=== PATIENT | male | born 1965 | race Caucasian/White ===

== ENCOUNTER 2022-06-29 17:04 | Inpatient (IN) | payer MEDICAID, OTHER ==
[~2022-06-29] VITALS: Ht 177.8 cm; Wt 108.9 kg
[2022-06-29 17:05] VITALS: BP_SYST 152
--- NOTE | 2022-06-29 17:05 | NUR ---
BROUGHT IN BY BLS AMBULANCE AND TRIAGED. PLACED IN HALLWAY BED, AWAITING ER BED AVAILABILITY
[2022-06-29] MEDS ORDERED: ACET325T PO (17:33)
[2022-06-29] MEDS ORDERED: PROP10TA10 PO (17:33)
[2022-06-29] MEDS ORDERED: FURO-149 PO (17:33)
[2022-06-29] MEDS ORDERED: ONDA-8 PO (17:33)
[2022-06-29] MEDS ORDERED: BISA-140 PO (17:33)
[2022-06-29] MEDS ORDERED: PRO40 PO (17:33)
[2022-06-29] MEDS ORDERED: SPIR50TA5 PO (17:33)
[2022-06-29] MEDS ORDERED: IPRA3AMP9 INH (17:33)
[2022-06-29] MEDS ORDERED: CALC-823 PO (17:33)
[2022-06-29] MEDS ORDERED: LACT10SO6 PO (17:33)
--- NOTE | 2022-06-29 17:33 | NUR ---
Medication reconciliation completed with information provided by MIMA ROMERO. Any prior medication reconciliation on file was reviewed and corrected.
[2022-06-29 17:57] LABS: EOSINOPHILS # (AUTO) 0.1 K/uL (0.0-0.4); EOSINOPHILS % (AUTO) 4.6 % (0.0-4.0); HEMATOCRIT 24.7 % (36-54); HEMOGLOBIN 8.1 g/dL (14.0-18.0); LYMPHOCYTES # (AUTO) 0.5 K/uL (1.0-5.5); LYMPHOCYTES % (AUTO) 20.7 % (20.5-51.5); MEAN CORPUSCULAR HEMOGLOBIN 26 pg (27-31); MEAN CORPUSCULAR HGB CONC 33 % (32-36); MEAN CORPUSCULAR VOLUME 78 fL (79.0-98.0); MONOCYTES # (AUTO) 0.5 K/uL (0.0-1.0); MONOCYTES % (AUTO) 17.7 % (1.7-9.3); NEUTROPHILS # (AUTO) 1.4 K/uL (1.8-7.7); PLATELET COUNT (AUTO) 53 K/uL (130-430); RED BLOOD CELL COUNT(AUTO) 3.18 MIL/uL (4.2-6.2); RED CELL DISTRIBUTION WIDTH 23.3 % (9.0-15.0); WHITE BLOOD COUNT (AUTO) 2.5 K/uL (4.8-10.8)
[2022-06-29 18:11] LABS: ANION GAP 3 (5-15); CALCIUM 8.3 mg/dL (8.4-11.0); CHLORIDE 108 mmol/L (98-107); CREATININE 0.78 mg/dL (0.55-1.30); GLUCOSE 123 mg/dL (70-99); UREA NITROGEN, BLOOD 17 mg/dL (8-21)
[2022-06-29 18:12] LABS: INR 1.5 (0.80-1.20); PROTHROMBIN TIME 15.6 SECS (9.5-12.5)
[2022-06-29 18:19] LABS: ALANINE AMINOTRANSFERASE 26 U/L (12-78); ALBUMIN 2.3 g/dL (3.4-4.8); ASPARTATE AMINOTRANSFERASE 48 U/L (10-37); TOTAL BILIRUBIN 1.8 mg/dL (0.0-1.0)
[2022-06-29 18:30] LABS: GFR AFRICAN AMERICAN 132 mL/min (>90)
[2022-06-29] MEDS ORDERED: cefTRIAXone 1 GM in D5W 50 ML IV ONE (19:15)
[2022-06-29] MEDS ORDERED: MORPHINE 4 MG INJ. 4 MG/ML VIAL IVP ONE (20:30)
[2022-06-29] MEDS ORDERED: ONDANSETRON HCL 4 MG/2 ML VIAL IVP ONE (20:30)
--- NOTE | 2022-06-29 20:30 | NUR ---
PT BIBA FROM [facility] WITH C/O ABD PAIN AND DISTENTION X 3 WEEKS ACCOMPANIED WITH N/V. PT DENIES CP, AND DIARRHEA. PT A&O X3 AND FOLLOWING COMMANDS. PT ARRIVED ON 2L NC AND STATES HE USES O2 SUPPLEMENT AT HOME.
--- NOTE | 2022-06-29 20:34 | NUR ---
COVID SWAB OBTAINED AND SENT TO LAB.
[2022-06-29] MEDS ORDERED: cefTRIAXone 1 GM VIAL ONE (20:56)
--- NOTE | 2022-06-29 22:08 | NUR ---
Admit bed requested Patient will be admitted to care of Dr Hurtado.. Admitted to medsurg unit. Diagnosis abd pain/ascites Inpatient (Yes or No) yes Observation (Yes or No) No Orientation concerns or request close to nursing station (Yes or No) no Covid Status negative On vent or bipap n/a Isolation requirements n/a Needs a sitter n/a From Home (Yes or if No enter name of facility) [facility] Requires Dialysis (Yes or No)No Med Rec Completed (Yes of No) yes
--- NOTE | 2022-06-29 22:30 | NUR ---
PT RESTING IN BED WITH EYES CLOSED, LAYING IN SIDE. PT VSS. SAFETY PRECAUTIONS IN PLACE AND CONNECTED TO MONITOR.
--- NOTE | 2022-06-29 23:09 | NUR ---
MRSA SWAB COLLECTED AND SENT TO LAB.
--- NOTE | 2022-06-29 23:33 | NUR ---
Patient will be admitted to care of DR. GONZALEZ. Admitted to MED SURG unit. Will go to room 130. Belongings list completed. Complete and up to date summary report printed. SBAR report given SMITA Foster at bedside with opportunity for questions.
[2022-06-30 00:26] VITALS: BP_SYST 132
--- NOTE | 2022-06-30 01:12 | NUR ---
PT ADMITTED FROM ER, AOX4, EVEN AND UNLABORED BREATHING, DENIED SOB, CP, ABD DISTENDED, HOB ELEVATED, PT ON 2L OF OXYGEN VIA N/C, C/O ABD PAIN 10/29. COMPLETE BODY CHECK DONE AND SKIN INTACT, PT ORIENTED TO ROOM, USE OF CALL LIGHT, INSTRUCTED NOT TO GET OOB W/O CALLING FOR ASSISTANCE. PT VERBALIZED UNDERSTANDING. PAGED DR CARLOS MAY FOR PAIN MED FOR PT, AWAITING FOR MD RESPONSE
[2022-06-30] MEDS ORDERED: NALOXONE HCL 0.4 MG/ML AMP (NARCAN) IVP PRN (02:15)
[2022-06-30] MEDS: HYDROcodone/ACETAMIN 10-325 MG TAB PO PRN ×2 (02:18→15:42)
--- NOTE | 2022-06-30 06:46 | NUR ---
PT ASLEEP IN BED, EVEN AND UNLABORED BREATHING, HOB ELEVATED TO AID BREATHING, ON 2L OXYGEN VIA N/C, SALINE LOCK TO RH, PATENT AND FLUSHING WELL, VOIDING VIA URINAL, ABD PAIN CONTROLLED WITH NORCO AND WAS EFFECTIVE PER PT, ON BEDEST, SAFETY PREC MAINTAINED, CALL LIGHT WITHIN EASY REACH, WILL BE ENDORSED TO INCOMNG RN
[2022-06-30 11:10] VITALS: BP_SYST 143
[2022-06-30] MEDS ORDERED: IPRATROPIUM/ALBUTEROL SULFATE 3 ML AMPUL.NEB (DUONEB) INH PRN (13:30)
[2022-06-30] MEDS ORDERED: BISACODYL 5 MG TABLET.DR (DULCOLAX) PO PRN (13:30)
[2022-06-30] MEDS ORDERED: ACETAMINOPHEN 325 MG TABLET PO PRN (13:30)
[2022-06-30] MEDS ORDERED: CALCIUM CARBONATE 500 MG/ TAB.CHEW PO PRN (13:45)
--- NOTE | 2022-06-30 14:00 | NUR ---
paracentesis done at bedside, patient tolerated well, bp 117/62, 4.2l out
--- NOTE | 2022-06-30 15:44 | NUR ---
patient c/o 10/29 abdominal pain, prn norco administered per emar
[2022-06-30] MEDS: PROPRANOLOL HCL 10 MG TABLET (INDERAL) PO SCH ×2 (17:00→21:00)
[2022-06-30 17:06] VITALS: BP_SYST 102
--- NOTE | 2022-06-30 20:00 | NUR ---
no distress noted, comfort maintained, able to make needs known, systolic b/p 100, held inderal, c/o headache, medicated with tylenol, karla iv abx, patient voids via urinal safely on side of bed
[2022-06-30 20:15] VITALS: BP_SYST 100
[2022-06-30] MEDS ORDERED: cefTRIAXone 1 GM in D5W 50 ML IV SCH (21:00)
[2022-07-01 00:20] VITALS: BP_SYST 98
[2022-07-01 00:25] VITALS: BP_SYST 118
--- NOTE | 2022-07-01 02:00 | NUR ---
PATIENT SLEEPING, NO DISTRESS NOTED, COMFORT MAINTAINED
[2022-07-01 06:40] LABS: INR 1.5 (0.80-1.20); PROTHROMBIN TIME 15.5 SECS (9.5-12.5)
[2022-07-01 06:55] LABS: CALCIUM 8.3 mg/dL (8.4-11.0); CREATININE 0.79 mg/dL (0.55-1.30)
[2022-07-01 07:51] LABS: EOSINOPHILS % (AUTO) 2.9 % (0.0-4.0); HEMATOCRIT 23.2 % (36-54); HEMOGLOBIN 7.6 g/dL (14.0-18.0); LYMPHOCYTES # (AUTO) 0.3 K/uL (1.0-5.5); LYMPHOCYTES % (AUTO) 22.5 % (20.5-51.5); MEAN CORPUSCULAR HEMOGLOBIN 26 pg (27-31); MEAN CORPUSCULAR HGB CONC 33 % (32-36); MEAN CORPUSCULAR VOLUME 78 fL (79.0-98.0); MONOCYTES # (AUTO) 0.2 K/uL (0.0-1.0); MONOCYTES % (AUTO) 15.1 % (1.7-9.3); NEUTROPHILS % (AUTO) 58.5 % (40.0-70.0); RED BLOOD CELL COUNT(AUTO) 2.98 MIL/uL (4.2-6.2)
[2022-07-01 08:00] VITALS: BP_SYST 101
[2022-07-01 08:58] LABS: WHITE BLOOD COUNT (AUTO) 1.3 K/uL (4.8-10.8)
[2022-07-01 08:59] LABS: NEUTROPHILS # (AUTO) 0.8 K/uL (1.8-7.7)
[2022-07-01] MEDS: PROPRANOLOL HCL 10 MG TABLET (INDERAL) PO SCH ×4 (09:00→21:18)
[2022-07-01] MEDS: FUROSEMIDE 40 MG TABLET PO SCH (09:31)
[2022-07-01] MEDS: SPIRONOLACTONE 50 MG TABLET (ALDACTONE) PO SCH (09:31)
[2022-07-01] MEDS: PANTOPRAZOLE SODIUM 40 MG TAB PO SCH (09:31)
--- NOTE | 2022-07-01 10:19 | NUR ---
CRITICAL LAB: from Laboratory called with critical lab value . Medical record number and patient name verified. Read back of values done. Dr. Mcghee made notified of value. No orders given at this time.
[2022-07-01 12:00] VITALS: BP_SYST 117
[2022-07-01 14:36] LABS: PLATELET COUNT (AUTO) 41 K/uL (130-430)
[2022-07-01 16:00] VITALS: BP_SYST 98
--- NOTE | 2022-07-01 19:32 | NUR ---
RECEIVED REPORT ON PATIENT FROM SMITA VENCES, ASSUMED CARE, AND STARTED ASSESSMENT.
[2022-07-01 20:00] VITALS: BP_SYST 109
[2022-07-01] MEDS: HYDROcodone/ACETAMIN 10-325 MG TAB PO PRN (20:19)
[2022-07-01] MEDS: CEFEPIME 1 GM in D5W 50 ML IV SCH (21:00)
[2022-07-02 00:48] VITALS: BP_SYST 102
--- NOTE | 2022-07-02 07:03 | NUR ---
PATIENT PULLED OUT HIS IV ACCIDENTALLY. IV RESTARTED WITH A 22 GAUGE TO THE RIGHT WRIST AND WRAPPED WITH AN SAMANTHA BANDAGE. WILL CONTINUE TO MONITOR AND ASSESS FOR SAFETY AND COMFORT.
[2022-07-02 08:06] LABS: FOLATE (FOLIC ACID) 15.5 ng/mL (>3.0)
[2022-07-02 08:42] LABS: BASOPHILS % (AUTO) 0.7 % (0.0-2.0); EOSINOPHILS % (AUTO) 2.8 % (0.0-4.0); HEMATOCRIT 23.2 % (36-54); HEMOGLOBIN 7.5 g/dL (14.0-18.0); LYMPHOCYTES # (AUTO) 0.3 K/uL (1.0-5.5); LYMPHOCYTES % (AUTO) 24.6 % (20.5-51.5); MEAN CORPUSCULAR HEMOGLOBIN 25 pg (27-31); MEAN CORPUSCULAR HGB CONC 33 % (32-36); MEAN CORPUSCULAR VOLUME 78 fL (79.0-98.0); MONOCYTES # (AUTO) 0.2 K/uL (0.0-1.0); MONOCYTES % (AUTO) 14.2 % (1.7-9.3); NEUTROPHILS % (AUTO) 57.7 % (40.0-70.0); RED BLOOD CELL COUNT(AUTO) 2.98 MIL/uL (4.2-6.2); RED CELL DISTRIBUTION WIDTH 23.3 % (9.0-15.0)
[2022-07-02 08:50] LABS: CALCIUM 8.6 mg/dL (8.4-11.0); CREATININE 0.71 mg/dL (0.55-1.30)
[2022-07-02 08:52] LABS: INR 1.5 (0.80-1.20); PROTHROMBIN TIME 15.5 SECS (9.5-12.5)
[2022-07-02 08:56] LABS: TOTAL IRON BIND. CAPACITY 312 ug/dL (250-450)
[2022-07-02 09:00] LABS: NEUTROPHILS # (AUTO) 0.8 K/uL (1.8-7.7)
[2022-07-02 09:04] VITALS: BP_SYST 91
[2022-07-02 09:04] LABS: PLATELET COUNT (AUTO) 36 K/uL (130-430); WHITE BLOOD COUNT (AUTO) 1.3 K/uL (4.8-10.8)
[2022-07-02] MEDS: FUROSEMIDE 40 MG TABLET PO SCH (09:18)
[2022-07-02] MEDS: PANTOPRAZOLE SODIUM 40 MG TAB PO SCH (09:19)
[2022-07-02] MEDS: SPIRONOLACTONE 50 MG TABLET (ALDACTONE) PO SCH (09:19)
[2022-07-02] MEDS: CEFEPIME 1 GM in D5W 50 ML IV SCH ×2 (09:19→20:50)
[2022-07-02] MEDS: PROPRANOLOL HCL 10 MG TABLET (INDERAL) PO SCH ×4 (09:19→20:50)
[2022-07-02] MEDS: HYDROcodone/ACETAMIN 10-325 MG TAB PO PRN ×2 (12:14→16:22)
[2022-07-02 12:24] VITALS: BP_SYST 94
--- NOTE | 2022-07-02 14:53 | NUR ---
NPO AT MIDNIGHT FOR ABDOMINAL ULTRASOUND.
--- NOTE | 2022-07-02 15:13 | NUR ---
CONSULTATION PAGED REASON FOR CONSULTATION: LIVER CIRRHOSIS WAS CONSULT CALLED? Y PERSON WHO WAS NOTIFIED: YOLIE CONSULTING PHYSICIAN: MARIA DOLORES VAN MARINA PORTER SPECIALTY: GI MARINA PORTER PHONE NUMBER: [phone] REQUESTING PHYSICIAN: KATHY GUZMAN
--- NOTE | 2022-07-02 15:24 | NUR ---
Dietitian Recommendations * Continue Regular diet * HS snacks (Ensure and yogurt) per pt request LP, , RD Please refer to Nutrition Assessment for details. Addendum: 07/02/22 at [address] Amended: Links added. Addendum: 07/02/22 at [address] CORRECTION: Dietitian Recommendations * Mechanical Soft diet, Ensure BID (ONS yields 700 kcal/day, 40 gm protein/day) * HS snack (yogurt) LP, , RD Please refer to Nutrition Assessment for details.
[2022-07-02] MEDS ORDERED: FOLIC ACID 1 MG TABLET PO ONE (15:30)
[2022-07-02] MEDS ORDERED: THIAMINE HCL 100 MG TABLET PO ONE (15:30)
--- NOTE | 2022-07-02 15:30 | NUR ---
CONSULTATION PAGED REASON FOR CONSULTATION: PANCYTOPENIA WAS CONSULT CALLED? Y PERSON WHO WAS NOTIFIED: GARO CONSULTING PHYSICIAN: BEN TRUONG CLEANING TECHNICIAN SPECIALTY: HEMAOTOLOGY/RADIO ANTENNA INSTALLER PHONE NUMBER: [phone] REQUESTING PHYSICIAN: KATHY GUZMAN
[2022-07-02] MEDS: SOD FERRIC GLUC COMPLEX/SUC 125 MG in NS 100 ML IV SCH (16:00)
[2022-07-02 16:25] VITALS: BP_SYST 132
--- NOTE | 2022-07-02 19:23 | NUR ---
RECEIVED REPORT ON PATIENT FROM SMITA BOWENS, ASSUMED CARE, AND STARTED ASSESSMENT.
[2022-07-02 20:00] VITALS: BP_SYST 91
--- NOTE | 2022-07-02 20:15 | NUR ---
TRANSFER OF CARE/OPENING NOTE Received report from SMITA Siddiqi. Pt is lying in bed, eyes closed. No s/s of respiratory distress. Breathing even and unlabored on RA. IV site intact and patent saline lock. Fall and safety precautions in place with bed in lowest position, and call light within reach
[2022-07-02 23:54] LABS: BILIRUBIN,URINE NEGATIVE (NEGATIVE); BLOOD, URINE NEGATIVE (NEGATIVE); CLARITY/URINE CLEAR (CLEAR); COLOR,URINE YELLOW (YELLOW); GLUCOSE,URINE NEGATIVE (NEGATIVE); KETONES,URINE NEGATIVE (NEGATIVE); LEUKOCYTE ESTERASE ,URINE NEGATIVE (NEGATIVE); NITRITE, URINE NEGATIVE (NEGATIVE); PROTEIN URINE NEGATIVE (NEGATIVE); UROBILINOGEN,URINE 0.2 (0.2-1.0)
--- NOTE | 2022-07-03 00:12 | NUR ---
ROUNDS Pt lying in bed, eyes closed. Breathing even and unlabored. Pt is NPO for ABD ultrasound in the morning. Fall and safety checks in place
[2022-07-03 01:01] VITALS: BP_SYST 115
--- NOTE | 2022-07-03 06:40 | NUR ---
CLOSING NOTE Pt is lying in bed, eyes closed. No s/s of respiratory distress. Breathing even and unlabored on RA. IV site intact and patent saline lock. Pt is aware of the need of a stool sample. All needs met throughout shift. Fall and safety precautions in place with bed in lowest position, and call light within reach
[2022-07-03 08:20] LABS: BASOPHILS % (AUTO) 0.9 % (0.0-2.0); EOSINOPHILS % (AUTO) 2.8 % (0.0-4.0); HEMATOCRIT 23.4 % (36-54); HEMOGLOBIN 7.8 g/dL (14.0-18.0); LYMPHOCYTES # (AUTO) 0.3 K/uL (1.0-5.5); MEAN CORPUSCULAR HEMOGLOBIN 26 pg (27-31); MEAN CORPUSCULAR HGB CONC 33 % (32-36); MEAN CORPUSCULAR VOLUME 78 fL (79.0-98.0); MONOCYTES # (AUTO) 0.2 K/uL (0.0-1.0); MONOCYTES % (AUTO) 14.3 % (1.7-9.3); RED BLOOD CELL COUNT(AUTO) 3.01 MIL/uL (4.2-6.2); RED CELL DISTRIBUTION WIDTH 23.8 % (9.0-15.0)
[2022-07-03 08:22] VITALS: BP_SYST 115
[2022-07-03 08:23] LABS: NEUTROPHILS # (AUTO) 0.8 K/uL (1.8-7.7)
[2022-07-03 08:30] LABS: PLATELET COUNT (AUTO) 38 K/uL (130-430); WHITE BLOOD COUNT (AUTO) 1.4 K/uL (4.8-10.8)
[2022-07-03 09:08] LABS: ALBUMIN 2.2 g/dL (3.4-4.8); CALCIUM 8.4 mg/dL (8.4-11.0); CREATININE 0.74 mg/dL (0.55-1.30); TOTAL BILIRUBIN 1.8 mg/dL (0.0-1.0)
[2022-07-03] MEDS: THIAMINE HCL 100 MG TABLET PO SCH (10:18)
[2022-07-03] MEDS: FOLIC ACID 1 MG TABLET PO SCH (10:18)
[2022-07-03] MEDS: PANTOPRAZOLE SODIUM 40 MG TAB PO SCH (10:18)
[2022-07-03] MEDS: FUROSEMIDE 40 MG TABLET PO SCH (10:22)
[2022-07-03] MEDS: PROPRANOLOL HCL 10 MG TABLET (INDERAL) PO SCH ×4 (10:23→21:00)
[2022-07-03] MEDS: CEFEPIME 1 GM in D5W 50 ML IV SCH ×2 (10:25→21:46)
[2022-07-03] MEDS: SPIRONOLACTONE 50 MG TABLET (ALDACTONE) PO SCH (10:25)
--- NOTE | 2022-07-03 10:26 | NUR ---
propananol not given due to low diastolic reading
--- NOTE | 2022-07-03 13:30 | NUR ---
patients iv in LH became dislodged, 4 attempts made to start new piv all unsuccesful, telephone call to md for midline order, order obtained,
[2022-07-03 13:46] LABS: INR 1.5 (0.80-1.20); PROTHROMBIN TIME 15.2 SECS (9.5-12.5)
[2022-07-03] MEDS: HYDROcodone/ACETAMIN 10-325 MG TAB PO PRN ×2 (17:22→21:47)
[2022-07-03] MEDS: SOD FERRIC GLUC COMPLEX/SUC 125 MG in NS 100 ML IV SCH (17:24)
--- NOTE | 2022-07-03 19:30 | NUR ---
OPENING NOTE PT STANDING NEXT BED. STATED HE IS CONFUSED. ASSISTED HIM BACK TO HIS BED. VSS. IV MEDS RUNNING ORDERED. NO S/S OF DISTRESS OR PAIN. BED LOWEST POSITION. CONTINUE TO MONITOR.
[2022-07-03 20:00] VITALS: BP_SYST 99
[2022-07-04] VITALS: BP_SYST 97
--- NOTE | 2022-07-04 00:05 | NUR ---
ROUNDING NOTE PT STANDING NEXT TO BED. CHECKED VITAL SIGNS. HOLD PROPRANOLOL 20mg DUE TO LOW BP 97/34. PT REPORTED SOB. PROVIDED 2L OXYGEN VIA NASAL CANNULAR. CONFIRMED PT LYING IN BED AND BED LOWEST POSITION.
[2022-07-04 03:51] VITALS: BP_SYST 99
--- NOTE | 2022-07-04 07:07 | NUR ---
CLOSING NOTE PT LYING IN BED AND EYES CLOSED. BREATHING EVEN. OXYGEN 2L VIA NASAL CANNULAR. NO S/S OF ACUTE DISTRESS OR PAIN. PT ABLE TO AMBULATE BY HIMSELF. BED LOWEST POSITION. CALL LIGHT IN REACH
[2022-07-04 08:00] VITALS: BP_SYST 113
--- NOTE | 2022-07-04 08:45 | NUR ---
PATIENT C/O ABDOMINAL PAIN, PRN NORCO ADMINISTERED PER EMAR,
[2022-07-04] MEDS: FUROSEMIDE 40 MG TABLET PO SCH (09:00)
[2022-07-04] MEDS: PROPRANOLOL HCL 10 MG TABLET (INDERAL) PO SCH ×4 (09:00→21:00)
[2022-07-04] MEDS: SPIRONOLACTONE 50 MG TABLET (ALDACTONE) PO SCH (09:00)
--- NOTE | 2022-07-04 09:00 | NUR ---
CONSENTS OBTAINED FOR US GUIDED PARACENTESIS
[2022-07-04] MEDS: THIAMINE HCL 100 MG TABLET PO SCH (09:07)
[2022-07-04] MEDS: HYDROcodone/ACETAMIN 10-325 MG TAB PO PRN ×3 (09:07→23:45)
[2022-07-04] MEDS: FOLIC ACID 1 MG TABLET PO SCH (09:07)
[2022-07-04] MEDS: PANTOPRAZOLE SODIUM 40 MG TAB PO SCH (09:08)
[2022-07-04] MEDS: CEFEPIME 1 GM in D5W 50 ML IV SCH ×2 (09:12→21:33)
[2022-07-04] MEDS ORDERED: ALBUMIN HUMAN 25% 200 ML IV ONE (09:30)
--- NOTE | 2022-07-04 10:00 | NUR ---
US PARACENTESIS DONE AT BEDSIDE, 3.5L OUT, PATIENT TOLERATED WELL,BP 105/56
[2022-07-04 11:17] VITALS: BP_SYST 105
[2022-07-04 15:06] LABS: HEPATITIS B CORE AB, TOTAL Negative (Negative); HEPATITIS B SURFACE AG Negative (Negative)
[2022-07-04 17:12] VITALS: BP_SYST 110
[2022-07-04] MEDS: SOD FERRIC GLUC COMPLEX/SUC 125 MG in NS 100 ML IV SCH (17:13)
[2022-07-04] MEDS: TBO-FILGRASTIM 480 MCG/0.8 ML SYRINGE SUBCUT SCH (17:13)
--- NOTE | 2022-07-04 18:56 | NUR ---
PATIENT RESTING COMFORTABLY IN BED, NO C/O PAIN OR DISCOMFORT, WILL ENDORSE CARE TO PM NURSE
[2022-07-04 20:00] VITALS: BP_SYST 108
--- NOTE | 2022-07-04 20:00 | NUR ---
RECEIVED PT LYING IN BED, NO DISTRESS NOTED, DENIES PAIN, AAOX4, O2 SAT 95% ON RA. SINGLE LUMEN MIDLINE TO RUE SITE CDI. ABD SOFT AND DISTENDED. Addendum: 07/05/22 at 0213 by Jennifer Mckeon RN RN [id number]: PERITONEAL FLUID SENT TO LAB
[2022-07-05 00:27] VITALS: BP_SYST 105
[2022-07-05 07:05] LABS: ALBUMIN 2.3 g/dL (3.4-4.8); CALCIUM 8.7 mg/dL (8.4-11.0); CREATININE 0.66 mg/dL (0.55-1.30)
[2022-07-05 07:41] LABS: BASOPHILS % (AUTO) 0.3 % (0.0-2.0); EOSINOPHILS % (AUTO) 1.1 % (0.0-4.0); HEMATOCRIT 22.1 % (36-54); HEMOGLOBIN 7.2 g/dL (14.0-18.0); LYMPHOCYTES # (AUTO) 0.2 K/uL (1.0-5.5); LYMPHOCYTES % (AUTO) 5.9 % (20.5-51.5); MEAN CORPUSCULAR HEMOGLOBIN 25 pg (27-31); MEAN CORPUSCULAR HGB CONC 33 % (32-36); MEAN CORPUSCULAR VOLUME 78 fL (79.0-98.0); MONOCYTES # (AUTO) 0.3 K/uL (0.0-1.0); MONOCYTES % (AUTO) 8.5 % (1.7-9.3); NEUTROPHILS # (AUTO) 3.1 K/uL (1.8-7.7); RED BLOOD CELL COUNT(AUTO) 2.85 MIL/uL (4.2-6.2); RED CELL DISTRIBUTION WIDTH 23.6 % (9.0-15.0); WHITE BLOOD COUNT (AUTO) 3.7 K/uL (4.8-10.8)
[2022-07-05 08:00] VITALS: BP_SYST 106
[2022-07-05] MEDS: HYDROcodone/ACETAMIN 10-325 MG TAB PO PRN ×3 (08:38→22:03)
[2022-07-05] MEDS: CEFEPIME 1 GM in D5W 50 ML IV SCH ×2 (08:39→22:04)
[2022-07-05] MEDS: PANTOPRAZOLE SODIUM 40 MG TAB PO SCH (08:40)
[2022-07-05] MEDS: SPIRONOLACTONE 50 MG TABLET (ALDACTONE) PO SCH (08:40)
[2022-07-05] MEDS: PROPRANOLOL HCL 10 MG TABLET (INDERAL) PO SCH ×4 (08:40→21:00)
[2022-07-05] MEDS: FUROSEMIDE 40 MG TABLET PO SCH (08:41)
[2022-07-05] MEDS: FOLIC ACID 1 MG TABLET PO SCH (08:41)
[2022-07-05] MEDS: THIAMINE HCL 100 MG TABLET PO SCH (08:41)
--- NOTE | 2022-07-05 09:52 | NUR ---
Shift Summary: patient is AAOX4. vitals are stable. patient updated on plan of care for shift. patient states he has no questions or concerns at this time. patient educated on use of call light if patient needs staff assistance for any reason such as to ambulate due to patient being high risk for falls. patient states he understands. will continue to monitor. call light within reach, bed set to low, locked, and alarm on. Addendum: 07/05/22 at 1724 by Mario Mckeon RN RN patient unable to have bowl movement during shift. patient informed to call staff if patient needs to have bowel movement due to requiring sample. will continue to monitor.
[2022-07-05 10:36] LABS: PLATELET COUNT (AUTO) 32 K/uL (130-430)
[2022-07-05 11:15] VITALS: BP_SYST 117
[2022-07-05 12:27] LABS: NEUTROPHILS % (AUTO) 84.2 % (40.0-70.0)
[2022-07-05] MEDS: ONDANSETRON 4 MG ODT TAB PO PRN (13:04)
[2022-07-05 14:34] LABS: BF APPEARANCE UNSPUN HAZY (CLEAR); BODY FLUID SOURCE/ TYPE PERITONEAL; SOURCE/TYPE ,BODY FLUID PERITONEAL
[2022-07-05 14:35] LABS: APPEARANCE,SPUN,BODY FLUID CLEAR (CLEAR); BODY FLUID COLOR PINK (LT YELLOW); BODY FLUID TOTAL VOLUME 2450 mL
[2022-07-05 14:53] LABS: RBC, BODY FLUID 1990 /uL; WBC, BODY FLUID 117 /uL
[2022-07-05 14:54] LABS: MONOCYTES,BODY FLUID 95 %; NEUTROPHIL, BODY FLUID 5 %
[2022-07-05] MEDS: SOD FERRIC GLUC COMPLEX/SUC 125 MG in NS 100 ML IV SCH (15:00)
[2022-07-05 15:50] VITALS: BP_SYST 97
[2022-07-05] MEDS: TBO-FILGRASTIM 480 MCG/0.8 ML SYRINGE SUBCUT SCH (16:18)
[2022-07-05 17:37] LABS: BODY FLUID GLUCOSE 120 mg/dL; BODY FLUID TOTAL PROTEIN < 2.0 g/dL
--- NOTE | 2022-07-05 19:30 | NUR ---
PT AWAKE AND ALERT ORIENTED X 4. HE IS ROOM AIR AND AMBULATORY.
[2022-07-05 20:00] VITALS: BP_SYST 90
--- NOTE | 2022-07-05 20:00 | NUR ---
PT HAD BOWEL MOVEMENT, THE STOOL IS COLLECTED AND SENT IT TO THE LAB.
--- NOTE | 2022-07-05 20:30 | NUR ---
PT IS ASKING FOR PAIN MEDICATION. HE SAID HE HAS SOME PAIN IN ABD.
[2022-07-06] VITALS: BP_SYST 104
--- NOTE | 2022-07-06 | NUR ---
pt is resting in bed. repositioned himself. bed lowered and side rail up
--- NOTE | 2022-07-06 04:00 | NUR ---
pt called using called light asking for nausea medication. He said he feels nauseated.
[2022-07-06] MEDS: ONDANSETRON 4 MG ODT TAB PO PRN ×2 (04:34→12:12)
--- NOTE | 2022-07-06 05:00 | NUR ---
Pt is resting on the bed. no respiratory distress noted. Side rail up
[2022-07-06 06:32] LABS: BASOPHILS % (AUTO) 0.1 % (0.0-2.0); EOSINOPHILS % (AUTO) 0.6 % (0.0-4.0); HEMATOCRIT 23.2 % (36-54); HEMOGLOBIN 7.6 g/dL (14.0-18.0); LYMPHOCYTES # (AUTO) 0.4 K/uL (1.0-5.5); LYMPHOCYTES % (AUTO) 5.6 % (20.5-51.5); MEAN CORPUSCULAR HEMOGLOBIN 26 pg (27-31); MEAN CORPUSCULAR HGB CONC 33 % (32-36); MEAN CORPUSCULAR VOLUME 79 fL (79.0-98.0); MONOCYTES # (AUTO) 0.7 K/uL (0.0-1.0); MONOCYTES % (AUTO) 10.2 % (1.7-9.3); NEUTROPHILS # (AUTO) 5.5 K/uL (1.8-7.7); NEUTROPHILS % (AUTO) 83.5 % (40.0-70.0); RED BLOOD CELL COUNT(AUTO) 2.94 MIL/uL (4.2-6.2); RED CELL DISTRIBUTION WIDTH 23.9 % (9.0-15.0); WHITE BLOOD COUNT (AUTO) 6.6 K/uL (4.8-10.8)
[2022-07-06 08:00] VITALS: BP_SYST 106
[2022-07-06 08:32] VITALS: BP_SYST 104
[2022-07-06 08:37] LABS: PLATELET COUNT (AUTO) 26 K/uL (130-430)
[2022-07-06] MEDS: CEFEPIME 1 GM in D5W 50 ML IV SCH ×2 (08:48→20:28)
[2022-07-06] MEDS: FUROSEMIDE 40 MG TABLET PO SCH (08:50)
[2022-07-06] MEDS: THIAMINE HCL 100 MG TABLET PO SCH (08:51)
[2022-07-06] MEDS: PROPRANOLOL HCL 10 MG TABLET (INDERAL) PO SCH ×4 (08:51→20:29)
[2022-07-06] MEDS: SPIRONOLACTONE 50 MG TABLET (ALDACTONE) PO SCH (08:51)
[2022-07-06] MEDS: PANTOPRAZOLE SODIUM 40 MG TAB PO SCH (08:51)
[2022-07-06] MEDS: FOLIC ACID 1 MG TABLET PO SCH (08:51)
[2022-07-06 09:12] LABS: CALCIUM 8.8 mg/dL (8.4-11.0); CREATININE 1.11 mg/dL (0.55-1.30)
--- NOTE | 2022-07-06 09:27 | NUR ---
Shift Summary: patient is AAXO4. vitals are stable. patient updated on plan of care for shift. patient states he has no questions or concerns at this time. patient educated on importance of using call light if patient needs to ambulate for any reason due to patient being high risk for falls. patient states he understands. will continue to monitor. call light within reach, bed set to low, locked, and alarm on Addendum: 07/06/22 at 1229 by Mario Mckeon RN RN followed up with caser up regarding discharge planning for patient to return to snf. caser up stated physician has to place discharge orders. physician made aware and state will place orders for discharge once physician arrives to hospital.
[2022-07-06 11:45] VITALS: BP_SYST 99
[2022-07-06] MEDS: HYDROcodone/ACETAMIN 10-325 MG TAB PO PRN ×3 (12:12→21:18)
[2022-07-06] MEDS: SOD FERRIC GLUC COMPLEX/SUC 125 MG in NS 100 ML IV SCH (15:18)
[2022-07-06 15:44] VITALS: BP_SYST 107
[2022-07-06] MEDS: TBO-FILGRASTIM 480 MCG/0.8 ML SYRINGE SUBCUT SCH (16:49)
--- NOTE | 2022-07-06 17:42 | NUR ---
Discharge summary: patient is AAOX4. vitals are stable. patient updated on discharge plan. patient states he has no questions or concerns upon discharge plan. report given to SMITA Cazares. patient going to [facility]. [phone]. patient estimated bead picker time is [phone] per senior case manager. patient will be discharge with PICC line intact per physician. SMITA Cazares state she has no questions or concerns upon receiving report. Will endorse to oncoming evening nurse regarding discharge plan.
--- NOTE | 2022-07-06 19:15 | NUR ---
OPENING NOTE REPORT RECEIVED FROM DAYSHIFT NURSE. PATIENT RECEIVED LYING IN BED, AWAKE, NO S/S OF ACUTE DISTRESS. BREATHING IS EVEN AND UNLABORED. HOB RAISED. ABELARDO PICC PATENT, NO SIGNS OF INFILTRATION OR INFECTION NOTED. SKIN WARM AND DRY TO TOUCH. CALL LIGHT WITH PATIENT. BED IS LOCKED AND AT LOWEST POSITION. WILL CONTINUE TO MONITOR.
[2022-07-06 21:45] VITALS: BP_SYST 110
--- NOTE | 2022-07-06 22:08 | NUR ---
MEDIC 1 FLIGHT ENGINEER INSTRUCTOR/DISCHARGE PATIENT SHOWS NO S/S OF ACUTE DISTRESS. BREATHING EVEN AND UNLABORED. ABELARDO PICC, SHOWS NO SIGNS OF INFILTRATION OR INFECTION NOTED. ALL NEEDS MET THROUGHOUT SHIFT. REPORT GIVEN TO MEDIC 1 EMT. PATIENT ESCORTED OUT OF UNIT VIA GURNEY.
[2022-07-07 12:26] LABS: HEPATITIS C VIRUS AB Reactive (Non Reactive)
== END 2022-07-06 22:00 | DRG 280 ==
LOC: SED 17:04 → SMU 22:06
PROVIDERS: ADMIT Family Medicine; ATTEND Family Medicine
PROC: 0W9G3ZZ Drainage of Peritoneal Cavity, Percutaneous Approach (ICD-10-PCS; 2022-06-30)
PROC: 0W9G3ZZ Drainage of Peritoneal Cavity, Percutaneous Approach (ICD-10-PCS; principal; 2022-07-04)
DX: K70.31 Alcoholic cirrhosis of liver with ascites (principal); K70.11 Alcoholic hepatitis with ascites; K65.0 Generalized (acute) peritonitis; D61.818 Other pancytopenia; E43 Unspecified severe protein-calorie malnutrition; D69.6 Thrombocytopenia, unspecified; R65.10 Systemic inflammatory response syndrome (SIRS) of non-infectious origin without acute organ dysfunction; K92.2 Gastrointestinal hemorrhage, unspecified; B19.20 Unspecified viral hepatitis C without hepatic coma; D73.1 Hypersplenism; I10 Essential (primary) hypertension; I25.10 Atherosclerotic heart disease of native coronary artery without angina pectoris; Z20.822 Contact with and (suspected) exposure to COVID-19; D50.9 Iron deficiency anemia, unspecified; Z68.34 Body mass index [BMI] 34.0-34.9, adult; Z87.891 Personal history of nicotine dependence; Z79.899 Other long term (current) drug therapy
CPT/HCPCS: 36415; 49083; 71045; 76700-TC; 80048; 80053; 81003; 82042; 82105; 82140; 82272; 82607; 82728; 82746; 82947; 83540; 83550; 83735; 83880; 84157; 84484; 85025; 85610-TC; 85730-TC; 86704; 86706; 86708; 86803; 86886; 86900; 86901; 87040; 87081; 87340; 89051-TC; 89060-TC; 93005; 94760; 96365; 99285; J0692; J0696; J1447; J2270; J2405; J2916; J7060; Q0162

== ENCOUNTER 2022-09-16 22:02 | Emergency (ER) | payer MEDICAID ==
[~2022-09-16] VITALS: Ht 177.8 cm; Wt 109.3 kg
[~2022-09-16 22:02] MED LIST: ACET325T PO; BISA-140 PO; CALC-823 PO; FURO-149 PO; IPRA3AMP9 INH; LACT10SO6 PO; ONDA-8 PO; PRO40 PO; PROP10TA10 PO; SPIR50TA5 PO
[2022-09-16 22:10] VITALS: BP_SYST 116
[2022-09-16 23:56] LABS: BASOPHILS % (AUTO) 0.7 % (0.0-2.0); EOSINOPHILS % (AUTO) 1.2 % (0.0-4.0); HEMATOCRIT 27.3 % (36-54); HEMOGLOBIN 9.2 g/dL (14.0-18.0); LYMPHOCYTES # (AUTO) 0.3 K/uL (1.0-5.5); LYMPHOCYTES % (AUTO) 12.5 % (20.5-51.5); MEAN CORPUSCULAR HEMOGLOBIN 30 pg (27-31); MEAN CORPUSCULAR HGB CONC 34 % (32-36); MEAN CORPUSCULAR VOLUME 89 fL (79.0-98.0); MONOCYTES # (AUTO) 0.4 K/uL (0.0-1.0); NEUTROPHILS # (AUTO) 1.8 K/uL (1.8-7.7); NEUTROPHILS % (AUTO) 70.6 % (40.0-70.0); PLATELET COUNT (AUTO) 60 K/uL (130-430); RED BLOOD CELL COUNT(AUTO) 3.05 MIL/uL (4.2-6.2); RED CELL DISTRIBUTION WIDTH 21.5 % (9.0-15.0); WHITE BLOOD COUNT (AUTO) 2.5 K/uL (4.8-10.8)
[2022-09-17 00:05] LABS: ALBUMIN 2.2 g/dL (3.4-4.8); CALCIUM 7.9 mg/dL (8.4-11.0); CREATININE 1.03 mg/dL (0.55-1.30); TOTAL BILIRUBIN 4.1 mg/dL (0.0-1.0)
[2022-09-17] MEDS ORDERED: fentaNYL CITRATE/PF 100 MCG/2 ML AMP IVP ONE (00:30)
[2022-09-17] MEDS ORDERED: PANTOPRAZOLE SODIUM 40 MG/VIAL (PROTONIX) IVP ONE (00:30)
[2022-09-17] MEDS ORDERED: PROCHLORPERAZINE EDISYLATE 10 MG/2 ML VIAL IVP ONE ×2 (00:30→05:15)
[2022-09-17] MEDS ORDERED: cefTRIAXone 1 GM in D5W 50 ML IV ONE (04:45)
[2022-09-17] MEDS ORDERED: cefTRIAXone 1 GM VIAL ONE (05:13)
[2022-09-17] MEDS ORDERED: MORPHINE 4 MG INJ. 4 MG/ML VIAL IVP ONE (05:15)
[2022-09-17] MEDS ORDERED: IBUPROFEN 800 MG TABLET PO ONE (11:30)
[2022-09-17 11:53] LABS: APPEARANCE,SPUN,BODY FLUID CLEAR (CLEAR); BF APPEARANCE UNSPUN HAZY (CLEAR); BODY FLUID SOURCE/ TYPE PERITONEAL; SOURCE/TYPE ,BODY FLUID PERITONEAL
[2022-09-17 11:54] LABS: BODY FLUID TOTAL VOLUME 1100 mL; LYMPHOCYTES, BODY FLUID 52 %; MONOCYTES,BODY FLUID 43 %; NEUTROPHIL, BODY FLUID 5 %
[2022-09-17 12:49] LABS: RBC, BODY FLUID 322 /uL; WBC, BODY FLUID 248 /uL
[2022-09-17 12:56] LABS: BODY FLUID CRYSTALS NO CRYSTALS SEEN (None Seen)
[2022-09-17] MEDS ORDERED: IBUPROFEN 800 MG TABLET ONE (14:10)
[2022-09-17 16:16] VITALS: BP_SYST 122
[2022-09-17 16:34] LABS: BODY FLUID GLUCOSE 105 mg/dL; BODY FLUID TOTAL PROTEIN 1.2 g/dL
== END 2022-09-17 16:16 | disposition home or self-care (01) ==
LOC: SED 22:02
DX: R14.0 Abdominal distension (gaseous) (principal); R18.8 Other ascites; R50.9 Fever, unspecified; R06.02 Shortness of breath; Z87.19 Personal history of other diseases of the digestive system; Z79.899 Other long term (current) drug therapy; Z20.822 Contact with and (suspected) exposure to COVID-19
CPT/HCPCS: 99285; 87426; 82947; 80053; 83690; 84157; 85025; 87081; 89051 ×2; 89060; 36415; J0696; C9113; J0780; J3010; J2270; 96365; 96375; 96376